=== PATIENT | female | born 1955 | race Hispanic/Latino ===

== ENCOUNTER 2018-09-26 13:34 | Emergency (ER) | payer BC ==
[2018-09-26] MEDS ORDERED: ZOFRAN IV ONE (13:43)
[2018-09-26] MEDS ORDERED: MORPHINE IV ONE ×5 (13:43→17:29)
[2018-09-26] MEDS ORDERED: NACL 0.9% 1000 ML 1,000 ML IV ONE (13:43)
[2018-09-26] MEDS ORDERED: TORADOL IV ONE (13:43)
--- NOTE | 2018-09-26 13:52 | Emergency Department Report ---
ED Abdominal Pain HPI - General Stated Complaint: UTI Time Seen by Provider: 09/26/18 13:43 Source: patient Mode of arrival: Ambulatory - History of Present Illness Initial Comments: Mrs. Buck is a very pleasant 63-year-old female with history of arthritis and iron deficiency anemia who presents with severe left flank pain which began 3 days ago. Pain was moderately severe dull without any radiation. Today pain became severe 10 out of 10 sharp radiating toward the left upper and lower roly drant. No previous history of kidney stone although she does have a family history with father with kidney stones. Does have a history of kidney infection. Subjective chills without fever. Mild malaise. Positive nausea. Feels dehydrated. Past surgical history includes left knee replacement, 2 back surgeries, gastric bypass, appendectomy, retinal detachment surgery, hysterectomy Currently being evaluated for possible rheumatoid arthritis without definitive diagnosis. Recently moved from [place] this past summer. She does not smoke cigarettes. She does drink wine on a weekly basis. 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 Family history includes autoimmune disease, multiple sclerosis, kidney stone, hypertension, diabetes Complaint: flank pain -: Gradual, days(s) (3) Location: L flank Radiation: LUQ, LLQ Severity: severe Severity scale (0 -10): 10 Quality: aching, sharp Consistency: constant Improves With: nothing Worsens With: nothing Associated Symptoms: nausea, chills - Related Data Previous Rx's Medication Instructions Recorded Last Taken Type Oxycodone HCl/Acetaminophen 1 each PO Q6HR PRN #30 tablet 08/05/18 Unknown Rx [Percocet 10/325 mg] Ondansetron [Zofran Odt] 4 mg PO Q8HR PRN #9 tab.rapdis 09/26/18 Unknown Rx Tamsulosin HCl [Flomax] 0.4 mg PO DAILY 7 Days #7 09/26/18 Unknown Rx cap.er.24h oxyCODONE /ACETAMINOPHEN [Percocet 1 tab PO Q6HR PRN #15 tablet 09/26/18 Unknown Rx 5/325] Allergies Allergy/AdvReac Type Severity Reaction Status Date / Time ciprofloxacin [From Cipro] Allergy Unknown Verified 09/26/18 14:04 Penicillins Allergy Unknown Verified 09/26/18 14:04 ED Review of Systems ROS: Stated complaint: UTI Other details as noted in HPI Comment: All other systems reviewed and negative Constitutional: chills, malaise. denies: fever Respiratory: denies: cough Cardiovascular: denies: chest pain Gastrointestinal: denies: diarrhea Musculoskeletal: back pain ED Past Medical Hx - Past Medical History Previous Medical History?: Yes - Surgical History Past Surgical History?: Yes - Medications Home Medications: Home Medications Medication Instructions Recorded Confirmed Last Taken Type Oxycodone HCl/Acetaminophen 1 each PO Q6HR PRN #30 tablet 08/05/18 Unknown Rx [Percocet 10/325 mg] Ondansetron [Zofran Odt] 4 mg PO Q8HR PRN #9 tab.rapdis 09/26/18 Unknown Rx Tamsulosin HCl [Flomax] 0.4 mg PO DAILY 7 Days #7 09/26/18 Unknown Rx cap.er.24h oxyCODONE /ACETAMINOPHEN [Percocet 1 tab PO Q6HR PRN #15 tablet 09/26/18 Unkno wn Rx 5/325] ED Physical Exam - General General appearance: alert, other (holding left flank in severe pain) - Head Head exam: Present: atraumatic, normocephalic - Eye Eye exam: Present: normal appearance - ENT ENT exam: Present: mucous membranes moist - Neck Neck exam: Present: normal inspection, full ROM. Absent: tenderness, meningismus - Respiratory Respiratory exam: Present: normal lung sounds bilaterally. Absent: respiratory distress, wheezes, rales, rhonchi - Cardiovascular Cardiovascular Exam: Present: regular rate, normal rhythm, normal heart sounds. Absent: systolic murmur, diastolic murmur, rubs, gallop - GI/Abdominal GI/Abdominal exam: Present: soft, normal bowel sounds. Absent: distended, tenderness, guarding, rebound - Back Exam Back exam: Present: normal inspection, CVA tenderness (L) - Neurological Exam Neurological exam: Present: alert, oriented X3, other (walks with limp) - Psychiatric Psychiatric exam: Present: normal affect, normal mood - Skin Skin exam: Present: warm, dry, intact, normal color. Absent: rash ED Course Vital Signs 09/26/18 09/26/18 13:54 14:27 Temperature 99.1 F Pulse Rate 80 Respiratory 18 18 Rate Blood Pressure 133/105 O2 Sat by Pulse 98 Oximetry ED Medical Decision Making - Lab Data Result diagrams: 09/26/18 13:50 09/26/18 13:50 Laboratory Results - last 24 hr 09/26/18 09/26/18 09/26/18 13:50 13:50 13:50 WBC 6.2 RBC 4.45 Hgb 13.3 Hct 38.5 MCV 87 MCH 30 MCHC 34 RDW 13.9 Plt Count 191 Lymph % (Auto) 35.7 H [place] % (Auto) 6.2 Eos % (Auto) 1.8 Baso % (Auto) 0.8 Lymph # 2.2 [place] # 0.4 Eos # 0.1 Baso # 0.0 Seg Neutrophils % 55.5 Seg Neutrophils # 3.4 Sodium 140 Potassium 4.4 Chloride 104.8 Carbon Dioxide 23 Anion Gap 17 BUN 12 Creatinine 0.7 Estimated GFR > 60 BUN/Creatinine Ratio 17 Glucose 97 Calcium 9.3 Urine Color Yellow Urine Turbidity Clear Urine pH 6.0 Ur Specific [place] 1.013 Urine Protein <15 mg/dl Urine Glucose (UA) Neg Urine Ketones Neg Urine Blood Sm Urine Nitrite Neg Urine Bilirubin Neg Urine Urobilinogen 4.0 Ur Leukocyte Esterase Sm Urine WBC (Auto) 1.0 Urine RBC (Auto) 8.0 U Epithel Cells (Auto) 1.0 - Radiology Data Radiology results: report reviewed - Medical Decision Making Left flank pain differential diagnosis: Renal colic, pyelonephritis, left lower lobe pneumonia, no indication of artery dissection or aortic devastation such as rupture CT abdomen and pelvis without contrast revealed 2 adjacent 4 mm stones in the left mid ureter. No signs of obstruction Patient does not exhibit signs of sepsis or bacteremia. Normal white count and no fever. Pain improved with treatment provided in the ED. She received oral and IV an algesia. SHe also received IV fluid. I prescribed Zofran Percocet and Flomax. Referral to urologist Critical care attestation.: If time is entered above; I have spent that time in minutes in the direct care of this critically ill patient, excluding procedure time. ED Disposition Clinical Impression: Ureteral stone, Renal colic on left side Disposition: -01 TO HOME OR SELFCARE Is pt being admited?: No Does the pt Need Aspirin: No Condition: Stable Instructions: Kidney Stones (ED) Additional Instructions: Hotline for kidney stone 5-711-OANSH95 Prescriptions: Ondansetron [Zofran Odt] 4 mg PO Q8HR PRN #9 tab.rapdis PRN Reason: Nausea oxyCODONE /ACETAMINOPHEN [Percocet 5/325] 1 tab PO Q6HR PRN #15 tablet PRN Reason: Pain Tamsulosin HCl [Flomax] 0.4 mg PO DAILY 7 Days #7 cap.er.24h Referrals: YOSEPH MENDEZ MD [Staff Physician] - 2-3 Days
[2018-09-26 14:02] LABS: Bilirubin,Urine NEG (Negative); Blood,Urine SM (Negative); Color,Urine Yellow (Yellow); Protein,Urine <15 mg/dL mg/dL (Negative)
[2018-09-26 14:03] LABS: Basophils % (Auto) 0.8 % (0.0-1.8); Eosinophils # (Auto) 0.1 K/mm3 (0.0-0.4); Eosinophils % (Auto) 1.8 % (0.0-4.3); Hematocrit 38.5 % (30.3-42.9); Hemoglobin 13.3 gm/dl (10.1-14.3); Lymphocytes # (Auto) 2.2 K/mm3 (1.2-5.4); Lymphocytes % (Auto) 35.7 % (13.4-35.0); Mean Corpuscular HGB Conc 34 % (30-34); Mean Corpuscular Volume 87 fl (79-97); Monocytes # (Auto) 0.4 K/mm3 (0.0-0.8); Monocytes % (Auto) 6.2 % (0.0-7.3); Platelet Count 191 K/mm3 (140-440); Red Blood Count 4.45 M/mm3 (3.65-5.03); Red Cell Distribution Width 13.9 % (13.2-15.2)
[2018-09-26 14:59] LABS: BUN/Creatinine Ratio 17; Blood Urea Nitrogen 12 mg/dL (7-17); Calcium 9.3 mg/dL (8.4-10.2); Hemolysis Index 3
--- NOTE | 2018-09-26 15:13 | Cat Scan Report ---
CT abdomen and pelvis without contrast: Left flank pain. Transverse images are obtained from lower chest to the ischium with coronal and sagittal 2-D reformatted images. There is calcified mediastinal and right hilar adenopathy and the visualized portions of the lung. A small calcification is identified in the dome of the right lobe of the liver and there are scattered small calcifications throughout the somewhat patulous spleen. The right adrenal gland is unremarkable. There is some question as to whether the left adrenal gland may be slightly hypertrophied. No definable mass. There is a small calcification in the periphery of the posterior left kidney but not in the collecting system. This is unassociated with any obvious mass. There are 2 adjacent 4 mm calculi which appear to lie within the left mid ureter. There is no obvious dilatation of the more proximal ureter. No other evidence of urinary tract calculus identified. The unopacified bowel and mesentery appear generally unremarkable. No inflammatory or abnormal fluid collections noted. The uterus is been removed. There is a fusion with hardware at L5-S1. Impressions: The findings are suspicious for nonobstructing left ureteral calculi. Prior granulomatous infection above and below the diaphragm.
[2018-09-26] MEDS ORDERED: PERCOCET 5/325 PO ONE (15:22)
[2018-09-26] MEDS ORDERED: PERCOCET 5/325 ONE (15:25)
[2018-09-26 16:11] VITALS: BP 147/88
== END 2018-09-26 18:22 | disposition home or self-care (01) ==
LOC: ED 13:34
DX: N20.2 Calculus of kidney with calculus of ureter (principal); M19.90 Unspecified osteoarthritis, unspecified site; Z88.1 Allergy status to other antibiotic agents; Z88.0 Allergy status to penicillin; Z86.2 Personal history of diseases of the blood and blood-forming organs and certain disorders involving the immune mechanism; Z90.710 Acquired absence of both cervix and uterus; Z90.49 Acquired absence of other specified parts of digestive tract; Z96.652 Presence of left artificial knee joint
CPT/HCPCS: 36415; 74176; 80048; 81001; 85025; 96374; 96375; 96376; 99284; J1885; J2270; J2405; J7030

== ENCOUNTER 2018-09-28 17:19 | Emergency (ER) | payer BC ==
[2018-09-28 17:32] VITALS: BP 163/106
[2018-09-28] MEDS ORDERED: NACL 0.9% 1000 ML 1,000 ML IV ONE (17:40)
[2018-09-28] MEDS ORDERED: TORADOL IV ONE (17:40)
[2018-09-28] MEDS ORDERED: ZOFRAN IV ONE (17:40)
[2018-09-28] MEDS ORDERED: MORPHINE IV ONE ×2 (17:40→19:10)
[2018-09-28 18:03] LABS: Basophils # (Auto) 0.1 K/mm3 (0.0-0.1); Basophils % (Auto) 0.9 % (0.0-1.8); Eosinophils # (Auto) 0.1 K/mm3 (0.0-0.4); Eosinophils % (Auto) 1.2 % (0.0-4.3); Hematocrit 39.8 % (30.3-42.9); Hemoglobin 13.8 gm/dl (10.1-14.3); Lymphocytes # (Auto) 1.8 K/mm3 (1.2-5.4); Lymphocytes % (Auto) 27.3 % (13.4-35.0); Mean Corpuscular HGB Conc 35 % (30-34); Mean Corpuscular Volume 85 fl (79-97); Monocytes # (Auto) 0.4 K/mm3 (0.0-0.8); Platelet Count 188 K/mm3 (140-440); Red Blood Count 4.67 M/mm3 (3.65-5.03); Red Cell Distribution Width 13.7 % (13.2-15.2)
[2018-09-28 18:24] LABS: BUN/Creatinine Ratio 22; Blood Urea Nitrogen 11 mg/dL (7-17); Calcium 9.2 mg/dL (8.4-10.2); Hemolysis Index 8
[2018-09-28 18:28] LABS: Bilirubin,Urine NEG (Negative); Blood,Urine MOD (Negative); Color,Urine Straw (Yellow); Mucus,Urine FEW /HPF; Protein,Urine <15 mg/dL mg/dL (Negative); Urobilinogen,Urine < 2.0 mg/dL (<2.0); WBC,Urine < 1.0 /HPF (0.0-6.0)
--- NOTE | 2018-09-28 19:46 | Ultrasound Report ---
FINAL REPORT EXAM: US RENAL LT HISTORY: recent non-obst mid ureter stone, left flank pain TECHNIQUE: Retroperitoneal ultrasound PRIORS: None. FINDINGS: The right kidney measures 8.4 x 4.2 x 3.4 centimeters The left kidney measures 8.7 x 4.5 x 4.7 centimeters. There is some limitation the kidneys incomplete ly visualized due to acoustic shadowing. There is no evidence of hydronephrosis or nephrolithiasis. Renal parenchyma is within normal limits. Images of the urinary bladder demonstrate no focal abnormality. IMPRESSION: Negative. No evidence of obstructive uropathy.
--- NOTE | 2018-09-28 20:35 | Emergency Department Report ---
ED General Adult HPI - General Chief complaint: Abdominal Pain Stated complaint: KIDNEY STONE Time Seen by Provider: 09/28/18 17:34 Source: patient Mode of arrival: Ambulatory Limitations: No Limitations - History of Present Illness Initial comments: Patient is a 63-year-old female who is presenting with increased left flank pain. Patient states that she was here 2 days ago and had to 4 mm stones in the mid ureter. Patient states pain was improved before she left the hospital on her last visit. Patient states that she became very nauseous today and actually was unable to keep down her Percocet. Patient states the pain returned and is now not only in her left back but also in the left flank. Patient states pain is 8 out of 10 in severity. Patient denies fevers chills dysuria or hematuria at this time. Severity scale (0 -10): 6 - Related Data Previous Rx's Medication Instructions Recorded Last Taken Type Oxycodone HCl/Acetaminophen 1 each PO Q6HR PRN #30 tablet 08/05/18 Unknown Rx [Percocet 10/325 mg] Ondansetron [Zofran Odt] 4 mg PO Q8HR PRN #9 tab.rapdis 09/26/18 Unknown Rx Tamsulosin HCl [Flomax] 0.4 mg PO DAILY 7 Days #7 09/26/18 Unknown Rx cap.er.24h oxyCODONE /ACETAMINOPHEN [Percocet 1 tab PO Q6HR PRN #15 tablet 09/26/18 Unknown Rx 5/325] Ondansetron [Zofran Odt] 4 mg PO Q8HR PRN #10 tab.rapdis 09/28/18 Unknown Rx traMADol [Ultram] 50 mg PO Q6HR PRN #12 tablet 09/28/18 Unknown Rx Allergies Allergy/AdvReac Type Severity Reaction Status Date / Time ciprofloxacin [From Cipro] Allergy Unknown Verified 09/26/18 14:04 Penicillins Allergy Unknown Verified 09/26/18 14:04 ED Review of Systems ROS: Stated complaint: KIDNEY STONE Other details as noted in HPI Comment: All other systems reviewed and negative ED Past Medical Hx - Past Medical History Hx Arthritis: Yes Additional medical history: heart murmur; anemia - Surgical History Hx Appendectomy: Yes Additional Surgical History: gastric bypass; back surgery (lumbar/sacral) x2; left eye (detach retina; cataract) left knee replacement - Social History Smoking Status: Never Smoker Substance Use Type: None - Medications Home Medications: Home Medications Medication Instructions Recorded Confirmed Last Taken Type Oxycodone HCl/Acetaminophen 1 each PO Q6HR PRN #30 tablet 08/05/18 Unknown Rx [Percocet 10/325 mg] Ondansetron [Zofran Odt] 4 mg PO Q8HR PRN #9 tab.rapdis 09/26/18 Unknown Rx Tamsulosin HCl [Flomax] 0.4 mg PO DAILY 7 Days #7 09/26/18 Unknown Rx cap.er.24h oxyCODONE /ACETAMINOPHEN [Percocet 1 tab PO Q6HR PRN #15 tablet 09/26/18 Unknown Rx 5/325] Ondansetron [Zofran Odt] 4 mg PO Q8HR PRN #10 tab.rapdis 09/28/18 Unknown Rx traMADol [Ultram] 50 mg PO Q6HR PRN #12 tablet 09/28/18 Unknown Rx ED Physical Exam - General Limitations: No Limitations General appearance: alert, in no apparent distress - Head Head exam: Present: atraumatic, normocephalic - Eye Eye exam: Present: normal appearance - ENT ENT exam: Present: mucous membranes moist - Neck Neck exam: Present: normal inspection - Respiratory Respiratory exam: Present: normal lung sounds bilaterally. Absent: respiratory distress, wheezes, rales, rhonchi - Cardiovascular Cardiovascular Exam: Present: regular rate, normal rhythm. Absent: systolic murmur, diastolic murmur, rubs, gallop - GI/Abdominal GI/Abdominal exam: Present: soft, tenderness (patient with left lower quadrant tenderness as well as some tenderness in the left CVA region), normal bowel sounds. Absent: distended, guarding, rebound, rigid - Extremities Exam Extremities exam: Present: normal inspection - Back Exam Back exam: Present: normal inspection, CVA tenderness (L) - Neurological Exam Neurological exam: Present: alert, oriented X3 - Psychiatric Psychiatric exam: Present: normal affect, normal mood - Skin Skin exam: Present: warm, dry, intact, normal color. Absent: rash ED Course Vital Signs 09/28/18 17:29 Temperature 97.7 F Pulse Rate 87 Respiratory 18 Rate Blood Pressure 163/106 O2 Sat by Pulse 100 Oximetry ED Medical Decision Making - Lab Data Result diagrams: 09/28/18 17:50 09/28/18 17:50 Lab Results 09/28/18 09/28/18 09/28/18 Range/Units 17:50 17:50 Unknown WBC 6.6 (4.5-11.0) K/mm3 RBC 4.67 (3.65-5.03) M/mm3 Hgb 13.8 (10.1-14.3) gm/dl Hct 39.8 (30.3-42.9) % MCV 85 (79-97) fl MCH 30 (28-32) pg MCHC 35 H (30-34) % RDW 13.7 (13.2-15.2) % Plt Count 188 (140-440) K/mm3 Lymph % (Auto) 27.3 (13.4-35.0) % [place] % (Auto) 6.0 (0.0-7.3) % Eos % (Auto) 1.2 (0.0-4.3) % Baso % (Auto) 0.9 (0.0-1.8) % Lymph # 1.8 (1.2-5.4) K/mm3 [place] # 0.4 (0.0-0.8) K/mm3 Eos # 0.1 (0.0-0.4) K/mm3 Baso # 0.1 (0.0-0.1) K/mm3 Seg Neutrophils % 64.6 (40.0-70.0) % Seg Neutrophils # 4.2 (1.8-7.7) K/mm3 Sodium 141 (137-145) mmol/L Potassium 4.0 (3.6-5.0) mmol/L Chloride 105.9 (98-107) mmol/L Carbon Dioxide 22 (22-30) mmol/L Anion Gap 17 mmol/L BUN 11 (7-17) mg/dL Creatinine 0.5 L (0.7-1.2) mg/dL Estimated GFR > 60 ml/min BUN/Creatinine Ratio 22 % Glucose 111 H (65-100) mg/dL Calcium 9.2 (8.4-10.2) mg/dL Urine Color Straw (Yellow) Urine Turbidity Clear (Clear) Urine pH 6.0 (5.0-7.0) Ur Specific [place] 1.004 (1.003-1.030) Urine Protein <15 mg/dl (Negative) mg/dL Urine Glucose (UA) Neg (Negative) mg/dL Urine Ketones Neg (Negative) mg/dL Urine Blood Mod (Negative) Urine Nitrite Neg (Negative) Urine Bilirubin Neg (Negative) Urine Urobilinogen < 2.0 (<2.0) mg/dL Ur Leukocyte Esterase Neg (Negative) Urine WBC (Auto) < 1.0 (0.0-6.0) /HPF Urine RBC (Auto) 7.0 (0.0-6.0) /HPF U Epithel Cells (Auto) < 1.0 (0-13.0) /HPF Urine Mucus Few /HPF - Radiology Data Ultrasound of the left kidney shows no acute process. There is no hydronephrosis present. - Medical Decision Making Patient is a 63-year-old female with left flank pain. Patient likely is having some movement of her previously seen kidney stones. Patient still has no evidence of hydronephrosis. Patient's pain was controlled with meds here in the emergency department. Patient was discharged home. Critical care attestation.: If time is entered above; I have spent that time in minutes in the direct care of this critically ill patient, excluding procedure time. ED Disposition Clinical Impression: Kidney stones, Ureteral stone Disposition: DC-01 TO HOME OR SELFCARE Is pt being admited?: No Does the pt Need Aspirin: No Condition: Stable Referrals: PRIMARY CARE, [Primary Care Provider] - 3-5 Days Time of Disposition: 20:35
== END 2018-09-28 21:03 | disposition home or self-care (01) ==
LOC: ED 17:19
DX: N20.1 Calculus of ureter (principal); N20.0 Calculus of kidney; M19.90 Unspecified osteoarthritis, unspecified site; Z90.49 Acquired absence of other specified parts of digestive tract; Z88.0 Allergy status to penicillin; Z88.1 Allergy status to other antibiotic agents
CPT/HCPCS: 36415; 76770; 80048; 81001; 85025; 96374; 96375; 96376; 99283; J1885; J2270; J2405; J7030; 76775

== ENCOUNTER 2018-10-24 14:36 | Outpatient (CLI) | payer BC ==
[2018-10-24 15:02] LABS: Basophils # (Auto) 0.1 K/mm3 (0.0-0.1); Basophils % (Auto) 1.4 % (0.0-1.8); Eosinophils # (Auto) 0.2 K/mm3 (0.0-0.4); Eosinophils % (Auto) 2.7 % (0.0-4.3); Hematocrit 37.1 % (30.3-42.9); Hemoglobin 12.7 gm/dl (10.1-14.3); Lymphocytes # (Auto) 2.4 K/mm3 (1.2-5.4); Lymphocytes % (Auto) 36.7 % (13.4-35.0); Mean Corpuscular HGB Conc 34 % (30-34); Mean Corpuscular Volume 87 fl (79-97); Monocytes # (Auto) 0.4 K/mm3 (0.0-0.8); Monocytes % (Auto) 6.1 % (0.0-7.3); Platelet Count 198 K/mm3 (140-440); Red Blood Count 4.27 M/mm3 (3.65-5.03); Red Cell Distribution Width 14.4 % (13.2-15.2)
[2018-10-24 15:56] LABS: Alanine Aminotransferase 14 units/L (7-56); Albumin 4.2 g/dL (3.9-5); BUN/Creatinine Ratio 27; Blood Urea Nitrogen 16 mg/dL (7-17); Calcium 8.8 mg/dL (8.4-10.2); Chol/HDL Ratio 2.73 %; HDL Cholesterol 49 mg/dL (40-59); Hemolysis Index 5; LDL Cholesterol,Direct 76 mg/dL (50-130)
--- NOTE | 2018-10-24 16:19 | Cat Scan Report ---
FINAL REPORT EXAM: CT CHEST WO CON HISTORY: HILAR ADENOPATHY TECHNIQUE: CT examination of the chest without IV contrast PRIORS: None. FINDINGS: Normal cardiac size. Nonspecific slight thickening of the anterior pericardium may be trace effusion. Slight fluid also extends superiorly along the anterior margin of the ascending thoracic aorta. Slig ht prominence of fluid in the superior pericardial recess as well. Small hiatal hernia adjacent to postoperative change of the GE junction. Otherwise normal appearing s tomach and esophagus. Evaluation of the [place] and mediastinum is limited by lack of IV contrast. Normal-appearing left hilum . Benign calcified granulomas in the right hilum, middle mediastinum, and subcarinal region. No defin ite soft tissue mass or adenopathy noted in the [place] and mediastinum. Multiple benign calcified granulomas in the spleen. A nonspecific, smoothly marginated, low density, simple appearing right renal lesion is statistically most likely a cyst. Small calcification in the p eriphery of the left kidney may be scar or granuloma. Prominent gas and stool in the visible portion of colon may reflect constipation. Several midline nonspecific fat containing ventral hernias below the xiphoid level. Degenerative change in the regional skeleton. No evidence of acute fracture. No pneumothorax or pleural effusion. No focal pulmonary consolidation. No definite lung nodule. IMPRESSION: No noncontrast CT evidence of hilar mass or adenopathy but the examination is limited by lack of IV c ontrast Suggestion of small pericardial effusion primarily collected anteriorly and superiorly Small hiatal hernia with evidence of prior GE junction surgery Benign calcified granulomas in the right hilum, middle mediastinum, subcarinal region, and spleen Prominent gas and stool in visible portion of colon may reflect constipation Several midline small fat containing ventral hernias below the xiphoid level
[2018-10-30 22:24] LABS: ANA Screen, IFA Negative (Negative)
== END 2018-10-24 14:37 | disposition home or self-care (01) ==
LOC: CT 14:36
PROVIDERS: ATTEND Internal Medicine
DX: K43.9 Ventral hernia without obstruction or gangrene (principal); K44.9 Diaphragmatic hernia without obstruction or gangrene; L92.9 Granulomatous disorder of the skin and subcutaneous tissue, unspecified; M19.90 Unspecified osteoarthritis, unspecified site; M47.819 Spondylosis without myelopathy or radiculopathy, site unspecified; Z90.710 Acquired absence of both cervix and uterus; Z90.49 Acquired absence of other specified parts of digestive tract
CPT/HCPCS: 36415; 71250; 80053; 80061; 82164; 84443; 85025; 86038; 86235; 86618

== ENCOUNTER 2018-11-25 08:43 | Emergency (ER) | payer BC ==
[2018-11-25] MEDS ORDERED: ZOFRAN IV ONE (09:33)
[2018-11-25] MEDS ORDERED: NACL 0.9% 1000 ML 1,000 ML IV ONE ×2 (09:33→14:05)
--- NOTE | 2018-11-25 09:53 | Emergency Department Report ---
ED General Adult HPI - General Chief complaint: Nausea/Vomiting/Diarrhea Stated complaint: VOMITING/DIARRHEA Time Seen by Provider: 11/25/18 09:16 Source: patient Mode of arrival: Ambulatory Limitations: No Limitations - History of Present Illness Initial comments: Patient presents to the emergency department with a chief complaint of nausea, vomiting, diarrhea with abdominal pain for last 3 days. Patient describes her stool as being liquid in nature with a foul odor. Patient denies any fever or antibiotic use. She has a history of gastric bypass greater than 20 years ago. -: Gradual Location: abdomen Severity scale (0 -10): 8 Quality: sharp Consistency: constant Improves with: none Worsens with: none Associated Symptoms: denies other symptoms Treatments Prior to Arrival: none - Related Data Previous Rx's Medication Instructions Recorded Last Taken Type Dicyclomine [Bentyl] 10 mg PO QID PRN #20 capsule 11/25/18 Unknown Rx Ondansetron [Zofran Odt] 4 mg PO Q4HR PRN #20 tab.rapdis 11/25/18 Unknown Rx Promethazine [Phenergan TAB] 25 mg PO Q6HR PRN #20 tab 11/25/18 Unknown Rx traMADol [Ultram] 50 mg PO Q6HR PRN #24 tablet 11/25/18 Unknown Rx Allergies Allergy/AdvReac Type Severity Reaction Status Date / Time ciprofloxacin [From Cipro] Allergy Unknown Verified 11/25/18 08:44 Penicillins Allergy Unknown Verified 11/25/18 08:44 ED Review of Systems ROS: Stated complaint: VOMITING/DIARRHEA Other details as noted in HPI Constitutional: denies: chills, fever Eyes: denies: eye pain, eye discharge, vision change ENT: denies: ear pain, throat pain Respiratory: denies: cough, shortness of breath, wheezing Cardiovascular: denies: chest pain, palpitations Endocrine: no symptoms reported Gastrointestinal: nausea, vomiting, diarrhea. denies: abdominal pain Genitourinary: denies: urgency, dysuria, discharge Musculoskeletal: denies: back pain, joint swelling, arthralgia Skin: denies: rash, lesions Neurological: denies: headache, weakness, paresthesias Psychiatric: denies: anxiety, depression Hematological/Lymphatic: denies: easy bleeding, easy bruising ED Past Medical Hx - Past Medical History Previous Medical History?: Yes Hx Arthritis: Yes Additional medical history: heart murmur; anemia, sarcoidosis? - Surgical History Past Surgical History?: Yes Hx Appendectomy: Yes Additional Surgical History: gastric bypass; back surgery (lumbar/sacral) x2; left eye (detach retina; cataract) left knee replacement - Social History Smoking Status: Never Smoker Substance Use Type: None - Medications Home Medications: Home Medications Medication Instructions Recorded Confirmed Last Taken Type Dicyclomine [Bentyl] 10 mg PO QID PRN #20 capsule 11/25/18 Unknown Rx Ondansetron [Zofran Odt] 4 mg PO Q4HR PRN #20 tab.rapdis 11/25/18 Unknown Rx Promethazine [Phenergan TAB] 25 mg PO Q6HR PRN #20 tab 11/25/18 Unknown Rx traMADol [Ultram] 50 mg PO Q6HR PRN #24 tablet 11/25/18 Unknown Rx ED Physical Exam - General Limitations: No Limitations General appearance: alert, in no apparent distress - Head Head exam: Present: atraumatic, normocephalic - Eye Eye exam: Present: normal appearance, PERRL, EOMI - ENT ENT exam: Present: mucous membranes dry - Neck Neck exam: Present: normal inspection - Respiratory Respiratory exam: Present: normal lung sounds bilaterally. Absent: respiratory distress, wheezes, rales, rhonchi - Cardiovascular Cardiovascular Exam: Present: normal rhythm, tachycardia. Absent: systolic murmur, diastolic murmur, rubs, gallop - GI/Abdominal GI/Abdominal exam: Present: soft, normal bowel sounds. Absent: distended, tenderness - Extremities Exam Extremities exam: Present: normal inspection - Back Exam Back exam: Present: normal inspection - Neurological Exam Neurological exam: Present: alert, oriented X3, CN II-XII intact. Absent: motor sensory deficit - Psychiatric Psychiatric exam: Present: normal affect, normal mood - Skin Skin exam: Present: warm, dry, intact, normal color. Absent: rash ED Course Vital Signs 11/25/18 11/25/18 11/25/18 09:09 11:09 13:30 Temperature 97.8 F 98.4 F 98.8 F Pulse Rate 102 H 88 74 Respiratory 13 14 16 Rate Blood Pressure 121/88 Blood Pressure 123/79 104/74 [Right] O2 Sat by Pulse 100 100 100 Oximetry ED Medical Decision Making - Lab Data Result diagrams: 11/25/18 09:26 03/12/19 09:26 Lab Results 11/25/18 11/25/18 11/25/18 Range/Units 09:26 09:26 09:26 WBC 5.1 (4.5-11.0) K/mm3 RBC 4.69 (3.65-5.03) M/mm3 Hgb 13.9 (10.1-14.3) gm/dl Hct 42.0 (30.3-42.9) % MCV 90 (79-97) fl MCH 30 (28-32) pg MCHC 33 (30-34) % RDW 15.4 H (13.2-15.2) % Plt Count 199 (140-440) K/mm3 Lymph % (Auto) 19.0 (13.4-35.0) % Park % (Auto) 8.8 H (0.0-7.3) % Eos % (Auto) 1.2 (0.0-4.3) % Baso % (Auto) 0.9 (0.0-1.8) % Lymph # 1.0 L (1.2-5.4) K/mm3 Park # 0.5 (0.0-0.8) K/mm3 Eos # 0.1 (0.0-0.4) K/mm3 Baso # 0.0 (0.0-0.1) K/mm3 Seg Neutrophils % 70.1 H (40.0-70.0) % Seg Neutrophils # 3.6 (1.8-7.7) K/mm3 Sodium 140 (137-145) mmol/L Potassium 3.8 (3.6-5.0) mmol/L Chloride 105.5 (98-107) mmol/L Carbon Dioxide 18 L (22-30) mmol/L Anion Gap 20 mmol/L BUN 27 H (7-17) mg/dL Creatinine 1.2 (0.7-1.2) mg/dL Estimated GFR 46 ml/min BUN/Creatinine Ratio 23 % Glucose 98 (65-100) mg/dL Calcium 8.9 (8.4-10.2) mg/dL Magnesium 1.80 (1.7-2.3) mg/dL Total Bilirubin 0.50 (0.1-1.2) mg/dL Direct Bilirubin < 0.2 (0-0.2) mg/dL Indirect Bilirubin 0.3 mg/dL AST 19 (5-40) units/L ALT 15 (7-56) units/L Alkaline Phosphatase 69 (35-129) units/L Total Protein 7.3 (6.3-8.2) g/dL Albumin 4.0 (3.9-5) g/dL Albumin/Globulin Ratio 1.2 % C. difficile Tox (PCR) (Negative) 11/25/18 Range/Units 10:00 WBC (4.5-11.0) K/mm3 RBC (3.65-5.03) M/mm3 Hgb (10.1-14.3) gm/dl Hct (30.3-42.9) % MCV (79-97) fl MCH (28-32) pg MCHC (30-34) % RDW (13.2-15.2) % Plt Count (140-440) K/mm3 Lymph % (Auto) (13.4-35.0) % Park % (Auto) (0.0-7.3) % Eos % (Auto) (0.0-4.3) % Baso % (Auto) (0.0-1.8) % Lymph # (1.2-5.4) K/mm3 Park # (0.0-0.8) K/mm3 Eos # (0.0-0.4) K/mm3 Baso # (0.0-0.1) K/mm3 Seg Neutrophils % (40.0-70.0) % Seg Neutrophils # (1.8-7.7) K/mm3 Sodium (137-145) mmol/L Potassium (3.6-5.0) mmol/L Chloride (98-107) mmol/L Carbon Dioxide (22-30) mmol/L Anion Gap mmol/L BUN (7-17) mg/dL Creatinine (0.7-1.2) mg/dL Estimated GFR ml/min BUN/Creatinine Ratio % Glucose (65-100) mg/dL Calcium (8.4-10.2) mg/dL Magnesium (1.7-2.3) mg/dL Total Bilirubin (0.1-1.2) mg/dL Direct Bilirubin (0-0.2) mg/dL Indirect Bilirubin mg/dL AST (5-40) units/L ALT (7-56) units/L Alkaline Phosphatase (35-129) units/L Total Protein (6.3-8.2) g/dL Albumin (3.9-5) g/dL Albumin/Globulin Ratio % C. difficile Tox (PCR) Negative (Negative) - Radiology Data Radiology results: report reviewed - Medical Decision Making Labs reviewed Results discussed with patient Critical care attestation.: If time is entered above; I have spent that time in minutes in the direct care of this critically ill patient, excluding procedure time. ED Disposition Clinical Impression: Nausea & vomiting, Diarrhea Disposition: TO HOME OR SELFCARE Is pt being admited?: No Does the pt Need Aspirin: No Condition: Stable Instructions: Acute Nausea and Vomiting (ED), Acute Diarrhea (ED) Additional Instructions: return if worse Prescriptions: Dicyclomine [Bentyl] 10 mg PO QID PRN #20 capsule PRN Reason: pain Promethazine [Phenergan TAB] 25 mg PO Q6HR PRN #20 tab PRN Reason: Nausea traMADol [Ultram] 50 mg PO Q6HR PRN #24 tablet PRN Reason: Pain Ondansetron [Zofran Odt] 4 mg PO Q4HR PRN #20 tab.rapdis PRN Reason: Nausea Referrals: PRIMARY CARE, [Primary Care Provider] - 3-5 Days SHANE SONG MD [Staff Physician] - 3-5 Days [facility] [Provider Group] - 3-5 Days [facility] [Provider Group] - 3-5 Days Time of Disposition: 15:37
[2018-11-25 10:10] LABS: Basophils % (Auto) 0.9 % (0.0-1.8); Eosinophils # (Auto) 0.1 K/mm3 (0.0-0.4); Eosinophils % (Auto) 1.2 % (0.0-4.3); Hemoglobin 13.9 gm/dl (10.1-14.3); Mean Corpuscular HGB Conc 33 % (30-34); Mean Corpuscular Volume 90 fl (79-97); Monocytes # (Auto) 0.5 K/mm3 (0.0-0.8); Monocytes % (Auto) 8.8 % (0.0-7.3); Platelet Count 199 K/mm3 (140-440); Red Blood Count 4.69 M/mm3 (3.65-5.03); Red Cell Distribution Width 15.4 % (13.2-15.2)
[2018-11-25] MEDS ORDERED: MORPHINE IV ONE ×2 (10:17→10:58)
--- NOTE | 2018-11-25 10:27 | XRay Report ---
ABDOMINAL SERIES: History: Abdominal pain. Erect chest film shows no acute or significant changes involving the heart or lung donahue. There is no evidence of free air beneath the diaphragms. The gas pattern within the abdomen is unremarkable. There is no evidence of bowel dilatation, significant air-fluid levels, or masses. Organ shadows are unremarkable. Surgical changes in the lower lumbar spine are noted. IMPRESSION: Abdominal series within normal limits.
[2018-11-25 10:38] LABS: Calcium 8.9 mg/dL (8.4-10.2)
[2018-11-25 11:55] LABS: Alanine Aminotransferase 15 units/L (7-56)
[2018-11-25 12:08] LABS: Bilirubin,Direct < 0.2 mg/dL (0-0.2)
[2018-11-25] MEDS ORDERED: BENTYL IM ONE ×2 (12:40→12:43)
[2018-11-25 16:00] VITALS: BP 116/74
== END 2018-11-25 16:00 | disposition home or self-care (01) ==
LOC: ED 08:43
DX: R11.2 Nausea with vomiting, unspecified (principal); R19.7 Diarrhea, unspecified; M19.90 Unspecified osteoarthritis, unspecified site; Z88.0 Allergy status to penicillin; Z88.1 Allergy status to other antibiotic agents
CPT/HCPCS: 36415; 74022; 80048; 80076; 83735; 85025; 87493; 93005; 93010; 96361; 96372; 96374; 96375; 96376; 99284; J0500; J2270; J2405; J7030

== ENCOUNTER 2019-03-06 07:46 | Outpatient (CLI) | payer BC ==
[2019-03-06 08:04] LABS: Hematocrit 37.9 % (30.3-42.9); Hemoglobin 13.3 gm/dl (10.1-14.3)
[2019-03-06 08:28] LABS: Iron 58 ug/dL (37-170)
[2019-03-10 05:41] LABS: Vitamin D, 25-OH, D2 <4 ng/mL
== END 2019-03-06 07:47 | disposition home or self-care (01) ==
LOC: LAB 07:46
PROVIDERS: ATTEND Internal Medicine
DX: Z13.1 Encounter for screening for diabetes mellitus (principal); Z13.220 Encounter for screening for lipoid disorders; Z13.21 Encounter for screening for nutritional disorder; D50.9 Iron deficiency anemia, unspecified; M19.90 Unspecified osteoarthritis, unspecified site; Z90.710 Acquired absence of both cervix and uterus; Z90.49 Acquired absence of other specified parts of digestive tract
CPT/HCPCS: 36415; 82306; 82607; 82728; 83036; 83540; 84466; 85014; 85018

== ENCOUNTER 2019-08-04 13:38 | Emergency (ER) | payer BC ==
[2019-08-04 13:45] VITALS: BP 171/104
--- NOTE | 2019-08-04 13:49 | Event Note ---
ED Screening Note Date of service: 08/04/19 Time: 13:45 ED Screening Note: 64 y/o female comes in for left great toe cellulites. Has been on abx. This initial assessment/diagnostic orders/clinical plan/treatment(s) is/are subject to change based on patients health status, clinical progression and re- assessment by fellow clinical providers in the ED. Further treatment and workup at subsequent clinical providers discretion. Patient/guardian urged not to elope from the ED as their condition may be serious if not clinically assessed and managed. Initial orders include:
[2019-08-04] MEDS ORDERED: CLINDAMYCIN 600 MG/50 mL 600 MG/50 ML BAG IV STA (14:32)
--- NOTE | 2019-08-04 15:04 | XRay Report ---
XR toe(s) 2+V LT INDICATION / CLINICAL INFORMATION: left great toe injury. COMPARISON: None available. FINDINGS: BONES/JOINT(S): No acute fracture or subluxation. No significant degenerative changes. SOFT TISSUES: No significant abnormality. ADDITIONAL FINDINGS: None. Signer Name: Kurtis Sosa MD Signed: 08/04/2019 2:59 PM Workstation Name: [id number]
[2019-08-04 15:24] LABS: Basophils # (Auto) 0.1 K/mm3 (0.0-0.1); Basophils % (Auto) 0.8 % (0.0-1.8); Eosinophils # (Auto) 0.1 K/mm3 (0.0-0.4); Eosinophils % (Auto) 1.3 % (0.0-4.3); Hematocrit 37.9 % (30.3-42.9); Hemoglobin 12.6 gm/dl (10.1-14.3); Lymphocytes # (Auto) 1.7 K/mm3 (1.2-5.4); Lymphocytes % (Auto) 26.3 % (13.4-35.0); Mean Corpuscular HGB Conc 33 % (30-34); Mean Corpuscular Volume 87 fl (79-97); Monocytes # (Auto) 0.4 K/mm3 (0.0-0.8); Monocytes % (Auto) 6.9 % (0.0-7.3); Platelet Count 190 K/mm3 (140-440); Red Blood Count 4.37 M/mm3 (3.65-5.03); Red Cell Distribution Width 14.3 % (13.2-15.2)
[2019-08-04] MEDS ORDERED: oxyCODONE /ACETAMINOPHEN 5-325MG TAB PO STA (15:34)
[2019-08-04] MEDS ORDERED: KETOROLAC 30 MG/1 ML INJ IV STA (15:34)
== END 2019-08-04 16:46 | disposition home or self-care (01) ==
LOC: ED 13:38
DX: L03.032 Cellulitis of left toe (principal)
CPT/HCPCS: 36415; 85025; 96365; J1885

== ENCOUNTER 2019-12-09 10:53 | Outpatient (CLI) | payer BC ==
[2019-12-09 11:16] LABS: Basophils # (Auto) 0.1 K/mm3 (0.0-0.1); Eosinophils # (Auto) 0.1 K/mm3 (0.0-0.4); Eosinophils % (Auto) 1.4 % (0.0-4.3); Hematocrit 37.3 % (30.3-42.9); Hemoglobin 12.6 gm/dl (10.1-14.3); Lymphocytes # (Auto) 2.9 K/mm3 (1.2-5.4); Lymphocytes % (Auto) 35.4 % (13.4-35.0); Mean Corpuscular HGB Conc 34 % (30-34); Mean Corpuscular Volume 85 fl (79-97); Monocytes # (Auto) 0.6 K/mm3 (0.0-0.8); Monocytes % (Auto) 6.9 % (0.0-7.3); Platelet Count 278 K/mm3 (140-440); Red Cell Distribution Width 15.4 % (13.2-15.2)
[2019-12-09 11:37] LABS: Alanine Aminotransferase 13 units/L (7-56); Albumin 4.2 g/dL (3.9-5); BUN/Creatinine Ratio 19; Blood Urea Nitrogen 15 mg/dL (7-17); Calcium 8.9 mg/dL (8.4-10.2); Chol/HDL Ratio 2.66 %; HDL Cholesterol 69 mg/dL (40-59); Hemolysis Index 3; LDL Cholesterol,Direct 106 mg/dL (50-130)
[2019-12-12 12:27] LABS: Vitamin D, 25-OH, D2 8 ng/mL
== END 2019-12-09 10:54 | disposition home or self-care (01) ==
LOC: LAB 10:53
PROVIDERS: ATTEND Internal Medicine
DX: Z00.00 Encounter for general adult medical examination without abnormal findings (principal); Z13.220 Encounter for screening for lipoid disorders; Z13.29 Encounter for screening for other suspected endocrine disorder; Z13.21 Encounter for screening for nutritional disorder
CPT/HCPCS: 36415; 80053; 80061; 82306; 82607; 83036; 84443; 85025

== ENCOUNTER 2020-01-19 14:32 | Emergency (ER) | payer BC, OTHER ==
[2020-01-19 14:41] VITALS: BP 145/102
[2020-01-19] MEDS ORDERED: CYCLOBENZAPRINE 10 MG TAB PO ONE (15:12)
[2020-01-19] MEDS ORDERED: predniSONE 20 MG TAB PO ONE (15:12)
[2020-01-19] MEDS ORDERED: HYDROmorphone 1 MG/1 ML INJ IM ONE (15:12)
--- NOTE | 2020-01-19 15:12 | Emergency Department Report ---
ED Back Pain/Injury HPI - General Chief Complaint: Back Pain/Injury Stated Complaint: WORK INJURY/LOW BACK PAIN Time Seen by Provider: 01/19/20 15:11 Source: patient Limitations: No Limitations - History of Present Illness Initial Comments: Patient is a 64-year-old female that comes to the ER with left lumbar back pain. This occurred while at work. 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 There is no spinal tenderness. The pain is to the left of her spine. There is palpable muscle spasm. No complaints of radiculopathy. No fever. Patient neurologically intact. Patient has had previous back surgeries. However, this pain is different than the pain that she has experienced with her herniated disc. No d ysuria. No fever. Patient did not fall. She has no other injury. No x-rays indicated given no spinal tenderness. Blood pressure noted to be elevated in triage most likely due to pain. We will recheck. Patient will follow-up with employee health given this is an on-the-job injury. MD Complaint: back pain -: Sudden Similar Symptoms Previously: No (This pain is different than her usual back pain secondary to herniated disc) Place: work Radiation: none Severity: severe Quality: aching Consistency: constant Improves With: immobilization, other (Took 9 Motrin today with no relief) Worsens With: movement Context: turning/twisting Associated Symptoms: denies other symptoms, other (No signs and symptoms of cauda equina) Treatments Prior to Arrival: NSAIDS - Related Data Previous Rx's Medication Instructions Recorded Last Taken Type Cyclobenzaprine [Flexeril] 10 mg PO TID PRN #10 tablet 01/19/20 Unknown Rx predniSONE [Deltasone] 20 mg PO DAILY #5 tablet 01/19/20 Unknown Rx traMADoL [Ultram] 50 mg PO Q6HR PRN #10 tablet 01/19/20 Unknown Rx Allergies Allergy/AdvReac Type Severity Reaction Status Date / Time ciprofloxacin [From Cipro] Allergy Unknown Verified 11/25/18 08:44 iron dextran complex Allergy Anaphylaxis Verified 08/04/19 13:41 Penicillins Allergy Unknown Verified 11/25/18 08:44 ED Review of Systems ROS: Stated complaint: WORK INJURY/LOW BACK PAIN Other details as noted in HPI Comment: All other systems reviewed and negative ED Past Medical Hx - Past Medical History Previous Medical History?: Yes Hx Arthritis: Yes Additional medical history: heart murmur; anemia, sarcoidosis? - Surgical History Past Surgical History?: Yes Hx Appendectomy: Yes Additional Surgical History: gastric bypass; back surgery (lumbar/sacral) x2; left eye (detach retina; cataract) left knee replacement - Family History Family history: no significant - Social History Smoking Status: Never Smoker Substance Use Type: None - Medications Home Medications: Home Medications Medication Instructions Recorded Confirmed Last Taken Type Cyclobenzaprine [Flexeril] 10 mg PO TID PRN #10 tablet 01/19/20 Unknown Rx predniSONE [Deltasone] 20 mg PO DAILY #5 tablet 01/19/20 Unknown Rx traMADoL [Ultram] 50 mg PO Q6HR PRN #10 tablet 01/19/20 Unknown Rx ED Physical Exam - General Limitations: No Limitations General appearance: alert, in no apparent distress - Head Head exam: Present: atraumatic, normocephalic - Eye Eye exam: Present: normal appearance - ENT ENT exam: Present: mucous membranes moist - Neck Neck exam: Present: normal inspection - Respiratory Respiratory exam: Present: normal lung sounds bilaterally. Absent: respiratory distress - Cardiovascular Cardiovascular Exam: Present: regular rate, normal rhythm. Absent: systolic murmur, diastolic murmur, rubs, gallop - GI/Abdominal GI/Abdominal exam: Present: soft, normal bowel sounds - Extremities Exam Extremities exam: Present: normal inspection - Back Exam Back exam: Present: normal inspection - Neurological Exam Neurological exam: Present: alert, oriented X3 - Psychiatric Psychiatric exam: Present: normal affect, normal mood - Skin Skin exam: Present: warm, dry, intact, normal color. Absent: rash ED Course Vital Signs 01/19/20 14:39 Temperature 98.6 F Pulse Rate 89 Respiratory 16 Rate Blood Pressure 145/102 O2 Sat by Pulse 100 Oximetry - Reevaluation(s) Reevaluation #1: 01/19/20 15:15 home meds meloxican prn benadryl for sleep ED Medical Decision Making - Medical Decision Making No spine tenderness. No neuro deficit. No radiation of pain suggestive of radiculopathy. Palpable muscle spasm to the left of lumbar spine. No signs and symptoms of cauda equina. Patient medicated for pain with the understanding that she would need to get a ride home. Patient discharged home with p.o. pain regimen and instructed to follow-up with employee health per protocol. Patient verbalizes understanding. Vital Signs 01/19/20 14:39 Temperature 98.6 F Pulse Rate 89 Respiratory 16 Rate Blood Pressure 145/102 O2 Sat by Pulse 100 Oximetry RN has been asked to recheck blood pressure on discharge. Most likely elevated secondary to pain - Differential Diagnosis Muscle strain Critical care attestation.: If time is entered above; I have spent that time in minutes in the direct care of this critically ill patient, excluding procedure time. ED Disposition Clinical Impression: Back strain Disposition: DC-01 TO HOME OR SELFCARE Is pt being admited?: No Does the pt Need Aspirin: No Condition: Stable Instructions: Muscle Strain (ED) Additional Instructions: meds as ordered today warm compresses and baths this evening do not drive while taking medications given today follow up with employee health per protocol Prescriptions: predniSONE [Deltasone] 20 mg PO DAILY #5 tablet Cyclobenzaprine [Flexeril] 10 mg PO TID PRN #10 tablet PRN Reason: Muscle Spasm traMADoL [Ultram] 50 mg PO Q6HR PRN #10 tablet PRN Reason: Pain Referrals: ASIA PALOMARES MD [Staff Physician] - 3-5 Days Time of Disposition: 15:11
== END 2020-01-19 16:22 | disposition home or self-care (01) ==
LOC: ED 14:32
DX: S39.012A Strain of muscle, fascia and tendon of lower back, initial encounter (principal); M19.91 Primary osteoarthritis, unspecified site; D64.9 Anemia, unspecified; Z98.890 Other specified postprocedural states; Z90.49 Acquired absence of other specified parts of digestive tract; Z79.899 Other long term (current) drug therapy; Z88.0 Allergy status to penicillin; Z88.1 Allergy status to other antibiotic agents; Z88.8 Allergy status to other drugs, medicaments and biological substances; X50.1XXA Overexertion from prolonged static or awkward postures, initial encounter; Y93.89 Activity, other specified; Y92.69 Other specified industrial and construction area as the place of occurrence of the external cause; Y99.0 Civilian activity done for income or pay
CPT/HCPCS: 96372; 99282; J1170; J7512

== ENCOUNTER 2020-03-03 08:05 | Outpatient (CLI) | payer BC ==
--- NOTE | 2020-03-03 09:07 | Cat Scan Report ---
CT chest wo con INDICATION: Sarcoidosis, chronic upper respiratory infection since November. TECHNIQUE: All CT scans at this location are performed using the following dose modulation technique: Automated exposure control. Helical slices were obtained through the chest. No contrast is administered. COMPARISON: CT scan dated 10/24/2018 FINDINGS: Chest: The lungs are clear. No focal infiltrate is seen. No pulmonary nodules or masses are seen. The pleura is unremarkable. On review of the mediastinum there are calcified nodes in the right hilum and in the mediastinum pippa acteristic of prior granulomatous exposure. No adenopathy is seen on today's exam. There is a small amount of pericardial fluid In the upper abdomen, changes of prior gastric bypass are noted. Calcified granulomata are noted in t he spleen. There is a fat-containing ventral hernia in the upper abdomen. There is a 4 mm fat density in the upper pole of the right kidney characteristic of a tiny angiomyolipoma. On review of bone windows, no acute osseous abnormalities are seen. IMPRESSION: 1. No adenopathy is seen in the mediastinum. There are calcified nodes in the mediastinum and right h ilum characteristic of prior granulomatous exposure and there are calcified granulomata in the spleen . 2. Lungs are clear. No focal infiltrate is seen. No pulmonary nodules or masses are seen. 3. There is a small pericardial effusion. Signer Name: Wyatt Butler MD Signed: 03/03/2020 9:02 AM Workstation Name: [id number]
[2020-03-03] MEDS ORDERED: REGADENOSON 0.4 MG/5 ML INJ IV ONE ×2 (10:00→12:41)
[2020-03-03 13:57] VITALS: BP 157/87
--- NOTE | 2020-03-04 11:23 | Treadmill Report ---
NUCLEAR PERFUSION STUDY READING PHYSICIAN: Uzair Lam MD REASON FOR STUDY: Shortness of breath. IMAGING PROTOCOL: The patient received 10 mCi of Technetium 99m Tetrofosmin for resting image and 28 mCi of Technetium 99m Tetrofosmin for stress imaging. The imaging for the whole procedure was completed 30-90 minutes following the initial injection of Technetium 99m Tetrofosmin. The SPECT imaging in the 180 degree arc was performed in the right anterior oblique projection. Computerized reconstruction of the images was performed for analysis. IMAGING RESULTS: Normal cavity size from stress to rest. Normal distribution of radionuclide in the anterior, inferior, septal, and apical regions. Gated SPECT, EF greater than 65% with no wall motion abnormality. The patient infused Lexiscan with no EKG changes. SUMMARY: 1. Negative Lexiscan EKG. 2. Normal rest and stress myocardial perfusion scan. No significant stress ischemia. No wall motion abnormality. Gated SPECT, EF greater than 65%. JOB# [id number] TIERNEY/ELLEN
== END 2020-03-03 08:06 | disposition home or self-care (01) ==
LOC: CT 08:05
PROVIDERS: ATTEND Internal Medicine
DX: I31.3 Pericardial effusion (noninflammatory) (principal); D73.89 Other diseases of spleen; D86.0 Sarcoidosis of lung
CPT/HCPCS: 36415; 71250; 78452; 93017; 93306; A9502; J2785